=== PATIENT | male | born 1955 | race Caucasian/White ===

== ENCOUNTER 2017-09-01 18:27 | Emergency (ER) | payer SELFPAY ==
[~2017-09-01] VITALS: Ht 170.2 cm; Wt 85.1 kg
[~2017-09-01 18:27] MED LIST: IBUP-1542 PO
[2017-09-01 18:35] VITALS: Ht 170.2 cm; Wt 85.1 kg
[2017-09-01] MEDS ORDERED: ACETAMINOPHEN 325 MG TAB PO ONE (20:00)
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
[2017-09-01] MEDS ORDERED: IBUP-1542 PO (20:48)
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
[2017-09-01 21:01] VITALS: BP 133/82; PULSE 91; RESP 16
== END 2017-09-01 21:03 | disposition home or self-care (01) ==
LOC: FTE 18:27
DX: S80.11XA Contusion of right lower leg, initial encounter (principal); S39.91XA Unspecified injury of abdomen, initial encounter; I10 Essential (primary) hypertension; W22.8XXA Striking against or struck by other objects, initial encounter; Y92.9 Unspecified place or not applicable
CPT/HCPCS: 71010; 73590; 76705

== ENCOUNTER 2018-03-20 16:11 | Emergency (ER) | END 2018-03-20 21:03 | disposition home or self-care (01) ==